=== PATIENT | female | born 1950 | race Caucasian/White ===

== ENCOUNTER 2025-01-27 13:35 | Outpatient (CLI) | payer MEDICARE, MEDICAID, SELFPAY ==
--- NOTE | 2025-01-27 | ECHO_ITS ---
Patient Info Name: Melida Maxwellbrook Age: 74 years : 1950 Gender: Female Ht: 65 in Wt: 140 lbs BSA: 1.71 m2 HR: 67 bpm BP: 178 / 101 mmHg Heart Rhythm: Sinus Rhythm Technical Quality: Fair Exam Date: 01/27/2025 2:07 PM Patient Status: unknown Admit Date: 01/27/2025 Exam Type: CA echo doppler color flow Complete two-dimensional, color flow and Doppler transthoracic echocardiogram is performed. Wildlife Control Operator: Patricia Au Attending Provider: Kveen Dave Summary 1. Complete two-dimensional, color flow and Doppler transthoracic echocardiogram is performed. 2. Concentric LVH with well-preserved systolic function, no wall motion abnormalities. 3. Mild mitral regurgitation. Left Ventricle Left ventricular chamber dimension is normal. Left ventricular systolic function is normal, estimated at 60-65. There is mild concentric increased left ventricular wall thickness. The left ventricular diastolic function is grade I diastolic dysfunction. Right Ventricle Right ventricular chamber dimension is normal. Left Atria Left atrial chamber dimension is normal. Right Atria Right atrial chamber dimension is normal. Aortic Valve The aortic valve is trileaflet. There is mild aortic valve sclerosis. Pulmonic Valve The pulmonic valve is normal. Mitral Valve The mitral valve has normal leaflets. There is mild mitral valve regurgitation. The mitral valve annulus is mildly calcified. Tricuspid Valve The tricuspid valve leaflets are normal. Pericardium/Pleural The pericardium appears normal. Aorta The aortic root size at the sinus of Valsalva is normal. Left Ventricular Outflow Tract Name Value Normal LVOT 2D LVOT Diameter 2.0 cm LVOT Doppler LVOT Peak Velocity 125 cm/s LVOT Peak Gradient 5 mmHg LVOT Mean Gradient 3 mmHg LVOT VTI 24 cm LVOT VTI/AV VTI Ratio 0.9 LVOT Stroke Volume 77 ml LVOT CO 4.0 l/min LVOT CI 2.3 l/min/m2 Pulmonic Valve Name Value Normal RVOT Doppler RVOT Peak Velocity 88 cm/s RVOT Peak Gradient 3 mmHg PV Doppler PV Peak Velocity 112 cm/s PV Peak Gradient 5 mmHg Mitral Valve Name Value Normal MV Regurgitation Doppler MR Peak Gradient 123 mmHg MV Diastolic Function MV E Peak Velocity 93 cm/s MV A Peak Velocity 73 cm/s MV E/A 1.3 MV Decel Time (PW) 245 ms MV Annular TDI MV E/e' (Septal) 14.7 MV E/e' (Lateral) 12.7 MV E/e' (Average) 13.7 Tricuspid Valve Name Value Normal TV Regurgitation Doppler TR Peak Velocity 246 cm/s TR Peak Gradient 18 mmHg Estimated PAP/RSVP RA Pressure 10 mmHg <=5 PA Systolic Pressure 34 mmHg <36 RV Systolic Pressure 34 mmHg <36 TV Annular TDI TV Lateral Rebecca s' Velocity 13.9 cm/s >=9.5 Aortic Valve Name Value Normal AV Doppler AV Peak Velocity 146 cm/s AV Peak Gradient 9 mmHg AV Mean Gradient 4 mmHg AV VTI 26 cm AV Area (Cont Eq VTI) 3.0 cm2 >=3.0 AV Area (Cont Eq Chi) 2.8 cm2 AV DI (Chi) 0.86 AV Regurgitation 2D LVOT Area 3.2 cm2 Ventricles Name Value Normal LV Dimensions 2D/MM IVS Diastolic Thickness (2D) 1.2 cm 0.6-1.0 LVID Diastole (2D) 4.2 cm 3.8-5.2 LVIW Diastolic Thickness (2D) 1.0 cm 0.6-0.9 LVID Systole (2D) 2.8 cm 2.2-3.5 LVOT Diameter 2.0 cm LV Mass (2D Cubed) 162.46 g 67.00-162.00 LV Mass Index (2D Cubed) 95 g/m2 43-95 Relative Wall Thickness (2D) 0.49 <=0.42 LV Fractional Shortening/Ejection Fraction 2D/MM LV Fractional Shortening (2D) 32 % 27-45 LV EF (2D Teichholz) 61 % LV Diastolic Volume (4C MOD) 56 ml LV EF (4C MOD) 57 % LV Diastolic Volume (2C MOD) 78 ml LV EF (2C MOD) 64 % LV Diastolic Volume (BP MOD) 68 ml 46-106 LV Diastolic Volume Index (BP MOD) 40 ml/m2 29-61 LV Systolic Volume (BP MOD) 26 ml 14-42 LV Systolic Volume Index (BP MOD) 15 ml/m2 8-24 LV EF (BP MOD) 62 % 54-74 LV Diastolic Length (4C) 8.1 cm LV Systolic Length (4C) 6.8 cm LV Stroke Volume (4C MOD) 32 ml Atria Name Value Normal LA Dimensions LA Volume (4C A-L) 59 ml LA Volume (BP A-L) 64 ml RA Dimensions RA Area (4C) 14.5 cm2 <=18.0 Report Signatures
--- OUTSIDE RECORDS SUMMARY | 2025-01-27 14:00 | XMS_ITS | Continuity of Care Document ---
Author Organization [facility] Address [address] [place] [address] Phone Care Team Providers Care Shoe Lay Out Planner Name Role Phone Noni Neely Unavailable Unavailable Procedures Procedure Date Office/outpatient Visit, Est Visual Field Examination(s) Office/outpatient Visit, Est Office/outpatient Visit, Est Corneal Pachymetry Fundus Photography W/ Report Visual Field Examination(s) Office/outpatient Visit, Est Office/outpatient Visit, Est Visual Field Examination(s) Office/outpatient Visit, Est Advance Directives Directive Yes / No Effective Date File Name No Information Encounters Encounter Description Practice Location Reason(s) For Visit Diagnoses Date Provider Providers Copied on Encounter Office/outpat ient Visit, Est [facility], [address] [place] [address] [address], [place], [place], [id number], [place] tel:[phone] [facility] No Information 1-201 0 Florinda Cheney. [address] [facility] , [address], [place], [address], [place]. tel:[phone] [facility], [address], [place], [place], [id number], [place] tel:[phone] [facility] No Information 1-200 9 Florinda Spain [address] [facility] [address] , [address], [place], [place], [facility] [place], [place]. tel:[phone] Referring Provider: Noni Nieto, [address], [place], [place], [facility] [place]. tel:[phone] Office/outpat ient Visit, [facility], [address] [place] [address] [address], [place], [place], [id number], [place] tel:[phone] [facility] No Information 6200 9 Florinda Cheney. [address] , [address], [place], [place], [facility] [place], [place]. tel:[phone] Office/outpat ient Visit, [facility], [address] [place] [address] [address], [place], [place], [id number], [place] tel:[phone] [facility] No Information 8 Florinda Cheney. [address], [place], [facility] [place], [place]. tel:[phone] Referring Provider: Noni Nieto, [facility] [facility] [address], [place], [facility] [place]. tel:[phone] [facility], [address] [place] [address] [address], [place], [place], [id number], [place] tel:[phone] [facility] No Information 2 8 Florinda Cheney. [address] [facility] , [address], [place], [facility] [place], [place]. tel:[phone] Referring Provider: Noni Nieto, [facility] [address], [place], [facility] [place]. tel:[phone] Office/outpat ient Visit, [facility], [address] [place] [address] [address], [place], [place], [id number], [place] tel:[phone] [facility] No Information 200 8 Florinda Cheney. [facility] , [address], [place], [facility] [place], . tel:[phone] Office/outpat ient Visit, [facility], [id number] [place] [address] [address], [place], [place], [id number], tel:[phone] SEC [facility] [place] No Information Dec-1 9-200 7 Ruiz OD Matt. [address] [facility] , [address], [place], [place], [facility] [place], . tel:[phone] [facility], [address] [place] [address] [address], [place], [place], [id number], tel:[phone] [facility] No Information Jan-2 2-200 7 Florinda Cheney. [address] [place] [address] , [address], [place], [facility] [place], . tel:[phone] Referring Provider: Noni Nieto, [address] [place] [address] [address], [place], [place], [facility] [place]. tel:[phone] Office/outpat ient Visit, [facility], [address] [place] [address] [address], [place], [place], [id number], tel:[phone] [facility] [place] No Information Apr-0 5-200 7 Florinda Cheney. [address] [place] [address] , [address], [place], [place], [facility] [place], . tel:[phone] Family History Family Member Type Diagnosis Age At Onset No Information Payers Payer name Insurance type Covered democrat ID Authoriza tion(s) No Information Social History Type Description Quantity Date Captured Comments Sex Female Smoking Status No Information Chief Complaint And Reason For Visit No Information Reason For Referral Reason For Referral No Information History Of Present Illness Encounter Date Complaint History Of Prese nt Illness No Information Functional Status Date Functional Assessmen t No Information Instructions Date Instruction Additional Infor mation No Information Assessments Type Assessment Date No Information Patient Care Teams Name Effective Dates (start - stop) Status Members No Information
--- OUTSIDE RECORDS SUMMARY | 2025-01-27 14:00 | XMS_ITS | Clinical Summary ---
Author Organization [facility] Address [address] [place] [address] Care Team Providers Care Sandwich And Drink Cart Operator Name Role Phone Chacha Marion MD Primary Care Provider [phone] Medications atorvastatin (LIPITOR) 40 MG tablet Take 1 tablet (40 mg total) by mouth every night 90 tablet 1 5 Active atorvastatin (LIPITOR) 40 MG tablet Take 40 mg by mouth in the morning. 0 12/30/19 25 Discontinu ed(Reorder (does not appear on AVS)) metFORMIN (GLUCOPHAGE) 500 MG tablet Take 1 tablet by mouth 1 (one) time each day 0 12/30/19 25 Discontinu ed(Alterna te therapy) Encounters Date Type Department Care Team Description 12/29/2024 12:30 PM CDT Office Visit [facility], [facility] [address] [facility] [address] [place] [phone] Keven Dave DO Stage 1 chronic kidney disease (Primary Dx); Persistent proteinuria; Unsteady when walking; Orthostatic hypotension; Hypertensive chronic kidney disease; Type 2 diabetes mellitus with diabetic chronic kidney disease (HCC); Pure hypercholesterolemia , not otherwise specified 12/29/2024 Refill [facility], [facility] [address] [facility] [address] [place] [phone] Ashley Reed CMA 12/22/2024 Orders Only [facility], [facility] [address] [place] [phone] Keven Dave DO from Last 3 Months Social History Tobacco Use Types Packs/Day Years Used Date Smoking Tobacco: Never Assessed Comments Unknown Sex and Gender Information Value Date Recorded Sex Assigned at Not on file Legal Sex Female 12:10 PM EST Gender Identity Not on file Sexual Orientation Not on file Last Filed Vital Signs Vital Sign Reading Time Taken Comments Blood Pressure 150/80 12/29/2024 12:22 PM CDT Pulse 57 12/29/2024 12:22 PM CDT Temperature 36.1 C (97 F) 12/29/2024 12:22 PM CDT Respiratory Rate 18 12/29/2024 12:22 PM CDT Oxygen Saturation 99% 12/29/2024 12:22 PM CDT Inhaled Oxygen Concentration - - Weight 60.9 kg (134 lb 4.8 oz) 12/29/2024 12:22 PM CDT Height 167.6 cm (5' 6) 10/02/2022 12:35 PM CDT Body Mass Index 21.68 10/02/2022 12:35 PM CDT Plan of Treatment Upcoming Encounters Date Type Department Care Team (Late st Contact Info) Description 02/23/2025 4:00 PM CDT Office Visit [facility], [facility] [address] [facility] [address] [place] [address] Keven Dave DO [address] [facility] [address] [place] [address] Health Maintenance Due Date Last Done Comments Diabetes: Ophthalmology Exam 10/08/2023 Diabetes: Pedal Pulse Checked 10/08/2023 Diabetes: Sensory Foot Exam 10/08/2023 Diabetes: Visual Foot Exam 10/08/2023 Influenza Vaccine (#1) 2025 , 06/09/2019, 04/29/2018, Additional history exists Diabetes: Hemoglobin A1C 03/24/2025 12/22/2024 Pneumococcal Vaccine: 50+ Years Completed 04/29/2018, 10/23/2016 Hepatitis B Vaccine Aged Out No longe r eligible based on patient's age to complete this topic Procedures Procedure Name Priority Date/Time Associated Diagnosis Comments HEMOGLOBIN A1C Routine 12/22/2024 9:06 AM CDT PROTEIN / CREATININE RATIO, URINE Routine 12/22/2024 9:06 AM CDT VITAMIN D 25 HYDROXY Routine 12/22/2024 9:06 AM CDT CBC AND DIFFERENTIAL Routine 12/22/2024 9:06 AM CDT URINE ALBUMIN / CREATININE RATIO Routine 12/22/2024 9:06 AM CDT RENAL FUNCTION PANEL Routine 12/22/2024 9:06 AM CDT LIPID PANEL Routine 12/22/2024 9:06 AM CDT from Last 3 Months Results * (ABNORMAL) Protein, Total, Random Urine w/Creatinine (Protein/Creat Ratio) (12/22/2024 9:06 AM CDT) Creatinine, Ur 14(L) 20 - 275 mg/dL [facility] Urine Protein/Creatin ine Ratio NOTE 24 - 184 mg/g creat [facility] Comment: THE PROTEIN VALUE IS LESS THAN 4 MG/DL THEREFORE WE ARE UNABLE TO CALCULATE EXCRETION AND/OR CREATININE RATIO. Protein/Creatin ine Ratio, Urine NOTE 0.024 - 0.184 mg/mg creat [facility] Protein Urine Random <4(L) 5 - 24 mg/dL [facility] 12/22/2024 9:06 AM CDT 12/22/2024 9:07 AM CDT Narrative [facility] - 12/23/2024 6:20 AM CDT FASTING:NO FASTING: NO Resulting Agency Comment Performing Organization Information: Site ID: [place] Name: [facility] Address: [address] [phone] Director: Leticia Maciel MD us Keven Dave DO LAB URINE ORDERABLES Final R esult [facility] [address] [place] [address] * (ABNORMAL) Urine Albumin / Creatinine Ratio (12/22/2024 9:06 AM CDT) Creatinine, Ur 14(L) 20 - 275 mg/dL [facility] Urine Microalbumin 0.2 See Note: mg/dL [facility] Comment: Reference Range: Reference Range Not established Microalb/Creat Ratio 14 <30 mg/g creat [facility] Comment: The ADA defines abnormalities in albumin excretion as follows: Albuminuria Category Result (mg/g creatinine) Normal to Mildly increased <30 Moderately increased 30-299 Severely increased > OR = 300 The ADA recommends that at least two of three specimens collected within a 3-6 month period be abnormal before considering a patient to be within a diagnostic category. 12/22/2024 9:06 AM CDT 12/22/2024 9:07 AM CDT Narrative [facility] - 12/23/2024 6:20 AM CDT FASTING:NO FASTING: NO Resulting Agency Comment Performing Organization Information: Site ID: [place] Name: [facility] Address: [address] [place] [address] Director: Leticia Maciel MD us Keven Dave DO LAB URINE ORDERABLES Final R esult [facility] [address] [place] [address] * Vitamin D 25 Hydroxy (12/22/2024 9:06 AM CDT) Vitamin D, 25-OH, Total, IA 36 30 - 100 ng/mL [facility] Comment: Vitamin D Status 25-OH Vitamin D: Deficiency: <20 ng/mL Insufficiency: 20 - 29 ng/mL Optimal: > or = 30 ng/mL For 25-OH Vitamin D testing on patients on D2-supplementation and patients for whom quantitation of D2 and D3 fractions is required, the [facility]TM) 25-OH VIT D, (D2,D3), LC/MS/MS is recommended: order code 96241 (patients >2yrs). See Note 1 Note 1 For additional information, please refer to http://education.SubHub/faq/XJX876 (This link is being provided for informational/ educational purposes only.) 12/22/2024 9:06 AM CDT 12/22/2024 9:07 AM CDT Narrative [facility] - 12/23/2024 6:20 AM CDT FASTING:NO FASTING: NO Resulting Agency Comment Performing Organization Information: Site ID: [place] Name: [facility] Address: [address] [phone] Director: Leticia Maciel MD us Keven Dave DO LAB BLOOD ORDERABLES Final R esult [facility] [address] [place] [address] * CBC and Differential (12/22/2024 9:06 AM CDT) WBC 6.5 3.8 - 10.8 Thousand/ uL [facility] RBC 4.31 3.80 - 5.10 Million/u L [facility] Hemoglobin 13.7 11.7 - 15.5 g/dL [facility] Hematocrit 41.7 35.0 - 45.0 % [facility] MCV 96.8 80.0 - 100.0 fL [facility] MCH 31.8 27.0 - 33.0 pg [facility] MCHC 32.9 32.0 - 36.0 g/dL [facility] Comment: For adults, a slight decrease in the calculated MCHC value (in the range of 30 to 32 g/dL) is most likely not clinically significant; however, it should be interpreted with caution in correlation with other red cell parameters and the patient's clinical condition. RDW 13.0 11.0 - 15.0 % [facility] Platelets 215 140 - 400 Thousand/ uL [facility] MPV 11.3 7.5 - 12.5 fL [facility] Neutrophils Absolute 4,570 1,500 - 7,800 cells/uL [facility] Band Neutrophils Absolute, Manual Count CANCELED 0 - 750 cells/uL [facility] Comment:Result canceled by t he ancillary. Metamyelocytes Absolute CANCELED 0 cells/uL [facility] Comment:Result canceled by t he ancillary. Absolute Myelocytes CANCELED 0 cells/uL [facility] Comment:Result canceled by t he ancillary. Absolute Promyelocytes CANCELED 0 cells/uL [facility] Comment:Result canceled by t he ancillary. Lymphocytes Absolute 1,320 850 - 3,900 cells/uL [facility] Monocytes Absolute 429 200 - 950 cells/uL [facility] Eosinophils Absolute 150 15 - 500 cells/uL [facility] Basophils Absolute 33 0 - 200 cells/uL [facility] Blasts Absolute CANCELED 0 cells/uL [facility] Comment:Result canceled by t he ancillary. NRBC Absolute CANCELED 0 cells/uL [facility] Comment:Result canceled by t he ancillary. Neutrophils Relative 70.3 % [facility] Bands Absolute CANCELED % [facility] Comment:Result canceled by t he ancillary. Metamyelocytes Percent CANCELED % [facility] Comment:Result canceled by t he ancillary. Myelocytes Relative CANCELED % [facility] Comment:Result canceled by t he ancillary. Promyelocytes Relative CANCELED % [facility] Comment:Result canceled by t he ancillary. Lymphocytes 20.3 % [facility] Variant lymphocytes/100 WBC (Bld) CANCELED 0 - 10 % [facility] Comment:Result canceled by t he ancillary. Monocytes 6.6 % [facility] Eosinophils 2.3 % [facility] Basophils Relative 0.5 % [facility] Blasts CANCELED % [facility] Comment:Result canceled by t he ancillary. nRBC CANCELED 0 /100 WBC [facility] Comment:Result canceled by t he ancillary. Comment(s) CANCELED [facility] Comment:Result canceled by t he ancillary. 12/22/2024 9:06 AM CDT 12/22/2024 9:07 AM CDT Narrative [facility] - 12/23/2024 6:20 AM CDT FASTING:NO FASTING: NO Resulting Agency Comment Performing Organization Information: Site ID: [place] Name: [facility] Address: [address] [place] [address] Director: Leticia Maciel MD Keven Dave DO LAB BLOOD ORDERABLES Final R esult [facility] [address] [place] [address] * Hemoglobin A1c (12/22/2024 9:06 AM CDT) Hemoglobin A1C 5.5 <5.7 % of total Hgb [facility] Comment: For the purpose of screening for the presence of diabetes: <5.7% Consistent with the absence of diabetes 5.7-6.4% Consistent with increased risk for diabetes (prediabetes) > or =6.5% Consistent with diabetes This assay result is consistent with a decreased risk of diabetes. Currently, no consensus exists regarding use of hemoglobin A1c for diagnosis of diabetes in children. According to [place] Diabetes Association (ADA) guidelines, hemoglobin A1c <7.0% represents optimal control in non- diabetic patients. Different metrics may apply to specific patient populations. Standards of Medical Care in Diabetes(ADA). 12/22/2024 9:06 AM CDT 12/22/2024 9:07 AM CDT Narrative [facility] - 12/23/2024 6:20 AM CDT FASTING:NO FASTING: NO Resulting Agency Comment Performing Organization Information: Site ID: [place] [facility]: [facility] Address: [address] [address] Director: Leticia Maciel us Keven Dave DO LAB BLOOD ORDERABLES Final R esult [facility] [address] [place] [address] * Renal Function Panel (12/22/2024 9:06 AM CDT) Glucose 97 65 - 139 mg/dL [facility] Comment: Non-fasting reference interval BUN 12 7 - 25 mg/dL [facility] Creatinine 0.71 0.60 - 1.00 mg/dL [facility] eGFR CKD-EPI CR 2020 88 > OR = 60 mL/min/1. 73m2 [facility] BUN/Creatinine Ratio SEE NOTE: (calc) [facility] Comment: Not Reported: BUN and Creatinine are within reference range. Sodium 141 135 - 146 mmol/L [facility] Potassium 4.2 3.5 - 5.3 mmol/L [facility] Chloride 103 98 - 110 mmol/L [facility] Bicarbonate (CO2) 27 20 - 32 mmol/L [facility] Calcium 9.8 8.6 - 10.4 mg/dL [facility] Phosphorus 4.2 2.1 - 4.3 mg/dL [facility] Albumin 4.4 3.6 - 5.1 g/dL [facility] 12/22/2024 9:06 AM CDT 12/22/2024 9:07 AM CDT Narrative [facility] - 12/23/2024 6:20 AM CDT FASTING:NO FASTING: NO Resulting Agency Comment Performing Organization Information: Site ID: [place] Name: [facility] Address: [address] [phone] Director: Leticia Maciel MD us Keven Dave DO LAB BLOOD ORDERABLES Final R esult [facility] [address] [phone] * (ABNORMAL) Lipid panel (12/22/2024 9:06 AM CDT) Cholesterol 232(H) <200 mg/dL [facility] HDL 85 > OR = 50 mg/dL [facility] Triglycerides 74 <150 mg/dL [facility] LDL Direct 130(H) mg/dL (calc) [facility] Comment: Reference range: <100 Desirable range <100 mg/dL for primary prevention; <70 mg/dL for patients with CHD or diabetic patients with > or = 2 CHD risk factors. LDL-C is now calculated using the Lili calculation, which is a validated novel method providing better accuracy than the Friedewald equation in the estimation of LDL-C. Faisal PALMER et al. HUBERT. 2013;310(19): 3254-5397 (http://education.SubHub/faq/VBH521) Chol/HDL Ratio 2.7 <5.0 (calc) [facility] Non HDL Cholesterol 147(H) <130 mg/dL (calc) [facility] Comment: For patients with diabetes plus 1 major ASCVD risk factor, treating to a non-HDL-C goal of <100 mg/dL (LDL-C of <70 mg/dL) is considered a therapeutic option. 12/22/2024 9:06 AM CDT 12/22/2024 9:07 AM CDT Narrative [facility] - 12/23/2024 6:20 AM CDT FASTING:NO FASTING: NO Resulting Agency Comment Performing Organization Information: Site ID: ABDIRASHID Name: [facility] Address: [address] [phone] Director: Leticia Maciel MD us Keven Dave DO LAB BLOOD ORDERABLES Final R esult [facility] [place] [address] [id number] from Last 3 Months Insurance UHC Medicare Medicaid [place] Care Teams Sandwich And Drink Cart Operator Relationship Specialty Start Date End Date Chacha Marion MD [address] [facility] [address] [place] [address] PCP - General Internal Medicine 05/10/22
== END 2025-01-27 13:36 | disposition home or self-care (01) ==
PROVIDERS: PCP Internal Medicine; Visit Provider Internal Medicine Nephrology
DX: R80.1 Persistent proteinuria, unspecified (principal); R26.89 Other abnormalities of gait and mobility; I95.1 Orthostatic hypotension; I12.9 Hypertensive chronic kidney disease with stage 1 through stage 4 chronic kidney disease, or unspecified chronic kidney disease; N18.1 Chronic kidney disease, stage 1; E11.22 Type 2 diabetes mellitus with diabetic chronic kidney disease; E78.00 Pure hypercholesterolemia, unspecified; I34.0 Nonrheumatic mitral (valve) insufficiency
CPT/HCPCS: 93306

== ENCOUNTER 2025-03-24 09:24 | Outpatient (CLI) | payer MEDICARE, MEDICAID, SELFPAY ==
--- NOTE | ~2025-03-24 | CT_ITS ---
CT ABDOMEN AND PELVIS WITHOUT CONTRAST Clinical History: Stage 1 CKD Comparison: None Technique: Unenhanced axial images lung bases to symphysis pubis Coronal, sagittal reformats CT images acquired with automatic exposure control for dose reduction DLP: 295 mGy-cm Findings: Without intravenous contrast, sensitivity for detecting visceral parenchymal abnormalities decreased. Lung bases: Clear. Visualized heart and pericardium: Unremarkable. Liver: Unremarkable. Gallbladder: Removed. Spleen: Unremarkable. Pancreas: Unremarkable. Adrenal glands: Unremarkable. Kidneys: Right kidney- No hydronephrosis. No renal stones. Large simple cyst. Left kidney- No hydronephrosis. No renal stones. Distal esophagus/stomach: Unremarkable. Small bowel loops: Normal caliber and wall thickness. Colon: Diverticula. Normal caliber and wall thickness. Normal appendix. Nodes: No enlarged nodes. Peritoneum: No ascites. No free intraperitoneal air. Urinary bladder: Unremarkable. Uterus: Unremarkable. Adnexa: No masses. Bones: No acute bony abnormality. Right hip degenerative changes. Left hip replacement. Soft tissues: Unremarkable. Unopacified abdominal aorta: No aneurysmal dilatation. Atherosclerotic disease. IMPRESSION: 1. No acute findings. Reviewed, dictated and finalized at location R. IMPRESSION: 1. No acute findings.
== END 2025-03-24 09:25 | disposition home or self-care (01) ==
PROVIDERS: PCP Internal Medicine; Visit Provider Internal Medicine Nephrology
DX: R80.1 Persistent proteinuria, unspecified (principal); R63.4 Abnormal weight loss; R26.89 Other abnormalities of gait and mobility; I12.9 Hypertensive chronic kidney disease with stage 1 through stage 4 chronic kidney disease, or unspecified chronic kidney disease; E11.22 Type 2 diabetes mellitus with diabetic chronic kidney disease; E78.00 Pure hypercholesterolemia, unspecified; N18.1 Chronic kidney disease, stage 1
CPT/HCPCS: 74176